=== PATIENT | male | born 1940 | race Caucasian/White ===

== ENCOUNTER 2018-12-08 09:22 | Inpatient (IN) ==
[2018-12-09] MEDS ORDERED: NON-FORMULARY MEDICATION 1 EACH EACH (Cefazolin Sodium In 0.9 % Nacl [Cefazolin 2 G/100 Ml IV SCH (17:30)
[2018-12-09] MEDS: Insulin LISPRO 300 UNITS/3 ML VIAL SQ SCH (23:10)
[2018-12-10] MEDS ORDERED: ceFAZolin 2,000 MG in 0.9 % Sodium Chloride 100 ML IVPB ONE
[2018-12-10 06:20] LABS: Basophils # 0.1 K/mcL (0.0-0.2); Basophils % 0.6 %; Eosinophils # 0.4 K/mcL (0.0-0.6); Eosinophils % 3.3 %; Hematocrit 34.9 % (37.5-50.1); Hemoglobin 11.2 g/dL (12.9-16.9); Immature Granulocytes % 1.2 % (0-4); Lymphocytes # 2.3 K/mcL (0.6-4.6); Lymphocytes % 20.7 %; Mean Corpuscular HGB Conc 32.1 g/dL (31.6-35.5); Mean Corpuscular Hemoglobin 27.8 pg (28.0-33.3); Mean Corpuscular Volume 86.6 fL (83.0-100.0); Mean Platelet Volume 10.8 fL (9.4-12.4); Monocytes # 1.1 K/mcL (0.0-1.3); Monocytes % 9.5 %; Neutrophils # 7.3 K/mcL (1.6-8.9); Platelet Count 486 K/mcL (140-400); Red Blood Count 4.03 M/mcL (4.19-5.50); Red Cell Distribution Width 13.8 % (11.5-14.5); Segmented Neutrophils % 64.7 %; White Blood Count 11.2 K/mcL (4.3-11.1)
[2018-12-10 06:38] LABS: BUN/Creatinine Ratio 23 (6-26); Blood Urea Nitrogen 20 mg/dL (8-23); Calcium 8.3 mg/dL (8.6-10.3); Carbon Dioxide 28 mEq/L (23-29); Chloride 103 mEq/L (98-107); Glucose 134 mg/dL (70-105); Osmolality,Calculated 289 (280-300); Potassium 3.5 mEq/L (3.5-5.1); Sodium 137 mEq/L (136-145); eGFR For African Americans > 60 (> 60); eGFR For Non-African Americans > 60 (> 60)
[2018-12-10] MEDS: Insulin LISPRO 300 UNITS/3 ML VIAL SQ SCH ×4 (07:23→21:00)
[2018-12-10] MEDS ORDERED: NON-FORMULARY MEDICATION 1 EACH EACH (Levofloxacin 750 Mg/150 Ml 750 MG) IVPB SCH (09:00)
[2018-12-10] MEDS: Aspirin Enteric Coated 81 MG Tablet PO SCH (09:23)
[2018-12-10] MEDS: Tiotropium 18 MCG inhalation IH SCH (10:06)
[2018-12-10] MEDS: LEVOFLOXACIN 750 MG/150 ML IVPB SCH (10:06)
--- NOTE | 2018-12-10 13:09 | Internal Med History&Physical ---
Date of Encounter: 12/10/18 Time of Encounter: 12:25 Assessment and Plan (1) MSSA bacteremia Current visit: No Status: Acute Continue IV Ancef through 12/26/2018. Lactobacillus will be added. (2) UTI (urinary tract infection) Current visit: No Status: Acute Continue IV Levaquin through 12/12/2018. Add lactobacillus. Qualifiers: Urinary tract infection type: site unspecified Hematuria presence: without hematuria Qualified Code(s): N39.0 - Urinary tract infection, site not specified (3) Diabetes Current visit: No Status: Chronic Check hemoglobin A1c in a.m. Accu-Cheks with SSI have been ordered. Qualifiers: Diabetes mellitus type: type 2 Diabetes mellitus senior care insulin use: without senior care use Diabetes mellitus complication status: with hyperglycemia Qualified Code(s): E11.65 - Type 2 diabetes mellitus with hyperglycemia (4) Essential hypertension Current visit: No Status: Chronic Not on antihypertensive medication at present time. Continue to monitor. (5) Dementia Current visit: No Status: Chronic Suspect SDAT with superimposed alcoholism Qualifiers: Dementia type: associated with alcoholism Dementia behavioral disturbance: with behavioral disturbance Qualified Code(s): F10.27 - Alcohol dependence with alcohol-induced persisting dementia (6) Blisters of multiple sites Current visit: No Status: Acute Continue antibiotics and dressings as ordered. Zinc level will be checked and multivitamin ordered. (7) Anemia Current visit: Yes Status: Acute Anemia testing will be done in a.m. Qualifiers: Anemia type: unspecified type Qualified Code(s): D64.9 - Anemia, unspecif ied (8) Hypophosphatemia Current visit: Yes Status: Acute Phosphorus level was 1.8 on 11/28/2018. Recheck in a.m. (9) Vitamin D deficiency Current visit: No Status: Acute Vitamin D level was low at 15 on 09/18/2016. Recheck in a.m. Internal Medicine - H&P: HPI Chief complaint: MSSA bacteremia, left second toe osteomyelitis Admitted From: Hospital to Hospital Transfer Plans for Post Hospital Care: Home History of present illness: Mr. Turner is a 77 year old male who was transferred to [facility] swing bed after a November 26 stay [address] [facility]. He presented to [facility] emergency room after being found on the floor at home for unknown period of time. He was found to have bacteremia with MSSA and Psychrobacter, UTI with MSSA and Serratia marcescens, and right second toe ulcer with MSSA and Serratia. 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 He had cellulitis of the right hand with gangrene of the right middle finger. He had numerous other skin ulcers. TTE showed no vegetations. He declined NIC. He was given IV antibiotics and discharged to [facility] swing bed to continue IV Levaquin through 12/12/2018 and IV Ancef through 12/26/2018. He has significant dementia and cannot provide little reliable information otherwise. Past Med Surg Social Fam HX - Past Medical History Medical history: arthritis, cancer, COPD, coronary artery disease, CVA, dementia, diabetes, GERD, hyperlipidemia, hypertension, osteoporosis, peripheral artery disease, other Psychiatric history: no psych history - Past Surgical History Surgical History: cancer surgery, cataract, other - Social History Smoking Status: Former smoker Smokeless Tobacco Status: No Alcohol use: none Drug use: none - Family History Mother Living Status: Internal Medicine - H&P: Meds Acetaminophen [Tylenol] 650 mg PO Q6HR PRN tablet 12/09/18 [Rx] Aspirin Enteric Coated [Aspirin EC] 81 mg PO DAILY tablet. 12/09/18 [Rx] Cefazolin Sodium in 0.9 % NaCl [Cefazolin 2 G/100 ml-0.9% NaCl] 2 gm IV Q8H 17 Days #51 plast..bag 12/09/18 [Rx] Insulin LISPRO [HumaLOG] 0 units SQ HS vial 12/09/18 [Rx] Insulin LISPRO [HumaLOG] 0 units SQ TIDAC vial 12/09/18 [Rx] Levofloxacin 750 MG/150 ML [Levaquin Premix 750mg/150 mL] 750 mg IVPB DAILY 3 Days #3 bag 12/09/18 [Rx] Miconazole 2% cream [Maricarmen Antifungal] 1 appl TP BID tube 12/09/18 [Rx] Mometasone Furoate [Asmanex Hfa] 2 puff IH BIDRESP puff 12/09/18 [Rx] Silvasorb 1 appl TP HS tube 12/09/18 [Rx] Tamsulosin [Flomax] 0.4 mg PO DAILY capsule 12/09/18 [Rx] Tiotropium [Spiriva] 18 mcg IH DAILYR inh 12/09/18 [Rx] risperiDONE [RisperDAL] 0.25 mg PO HS tablet 12/09/18 [Rx] Allergy/AdvReac Type Severity Reaction Status Date / Time tetanus and diphtheria AdvReac Hives Verified 06/22/15 22:32 toxoids [Tetanus&Diphtheria Toxoid] All Systems PM: A 10-system review of systems was performed and is negative for pertinent findings except as documented above in the HPI. Review of systems: Patient unable to give review of systems. Review of available records reveals the following: Gen.: His weight has been stable at approximately 80 kg since 2017. Cardiovascular: He has history of hypertension and a diagnosis of CAD not otherwise specified. He has PAD but no history of DVT or pulmonary embolus. Echocardiogram 11/28/2018 showed LVEF of 65%. There is no significant valvular abnormalities. Ventricular ventricular septum and posterior wall thickness measurements were 1.30 and 0.90 cm respectively. E/A ratio is 0.7. Respiratory: He states he started smoking as a teenager. The chart reports a diagnosis of COPD. GI: The chart shows GERD diagnosis. There is no disorders of liver gallbladder or exocrine pancreas documented : He had prostate CA with treatment history not documented. He has presumed BPH and is on Flomax. No other kidney bladder prostate disorders are documented. Neurologic: He has dementia. He states he drank alcohol heavily in younger year s. Chart reports a CVA history. Head CT did not show area of infarct. There was small vessel ischemic disease changes. Endocrine: He has diagnoses of DM 2 and hyperlipidemia. TSH was normal. His recent [facility] stay. Hematology/oncology: He has history of prostate CA as per above. No other malignancies are known. He developed anemia during his [facility] stay. Psychiatric: No anxiety depression or other mental health orders are documented [place] skeletal: He had right second toe amputation with osteomyelitis found on pathology. Cultures of the toe showed MSSA and Serratia. He has right hand cellulitis. He has multiple blisters on multiple sites including his right hand and bilateral feet. No history of gout or other bone joint or muscle disorders. - Constitutional Vitals: Temp Pulse Resp BP Pulse Ox 97.6 F 81 16 128/73 95 12/10/18 06:26 12/10/18 06:26 12/10/18 06:12/10/18 06:26 12/10/18 06:26 Exam: Gen.: He is a well-developed well-nourished male lying in bed who appears in no acute distress HEENT: Head is atraumatic and normocephalic. Eyes: EOMI. There is no scleral icterus. Mouth: Mucosa is moist. Neck: Supple and nontender. There is no thyromegaly or adenopathy noted. Heart: Regular without murmurs gallops or ectopics Lungs: No wheezes or crackles are heard. Abdomen: Soft and nontender. No masses or guarding are noted. Extremities: Both feet are wrapped in gauze. He has an orthopedic walking shoe on his right foot. His right hand is wrapped in gauze. There is significant gangrene of the lateral side of the right third finger. He is wearing Allevyn on the distal left forearm. Neurologic: Mental status: He is awake and alert but a poor historian. He does not know his location, recent hospitalization details, or age. Cranial nerves: Smile is symmetric. Forehead wrinkles bilaterally. Tongue protrudes midline. EOMI. Motor: There is no pronator drift. Cerebellar: Finger to nose is intact bilaterally. Skin: Warm and dry with ulcerative areas including gangrene as described above. Internal Med - H&P Results - Labs CBC & Chem 7: 12/10/18 05:00 12/10/18 05:00 Labs: Short CBC 12/10/18 Range/Units 05:00 WBC 11.2 H (4.3-11.1) K/mcL Hgb 11.2 L (12.9-16.9) g/dL Hct 34.9 L (37.5-50.1) % Plt Count 486 H (140-400) K/mcL Neutrophils # 7.3 (1.6-8.9) K/mcL BMP 12/10/18 05:00 Sodium 137 Potassium 3.5 Chloride 103 Carbon Dioxide 28 BUN 20 Creatinine 0.88 Glucose 134 H Calcium 8.3 L
[2018-12-10] MEDS: Lactobacillus 1 EACH CAP.SPRINK PO SCH (20:13)
[2018-12-10] MEDS: risperiDONE 0.25 MG TABLET PO SCH ×2 (20:13)
[2018-12-10] MEDS: Silvasorb 44.4 ML TUBE TP SCH ×2 (21:00)
[2018-12-11 06:24] LABS: Basophils # 0.1 K/mcL (0.0-0.2); Basophils % 0.5 %; Eosinophils # 0.4 K/mcL (0.0-0.6); Hematocrit 35.4 % (37.5-50.1); Hemoglobin 11.3 g/dL (12.9-16.9); Immature Granulocytes % 0.6 % (0-4); Lymphocytes # 2.1 K/mcL (0.6-4.6); Lymphocytes % 16.2 %; Mean Corpuscular HGB Conc 31.9 g/dL (31.6-35.5); Mean Corpuscular Volume 87.6 fL (83.0-100.0); Mean Platelet Volume 10.7 fL (9.4-12.4); Monocytes # 1.1 K/mcL (0.0-1.3); Monocytes % 8.6 %; Neutrophils # 9.4 K/mcL (1.6-8.9); Platelet Count 499 K/mcL (140-400); Red Blood Count 4.04 M/mcL (4.19-5.50); Segmented Neutrophils % 71.1 %; White Blood Count 13.2 K/mcL (4.3-11.1)
[2018-12-11 06:53] LABS: Alanine Aminotransferase 11 Units/L (7-52); Albumin 2.5 g/dL (3.5-5.7); Albumin/Globulin Ratio 0.6 (1.1-2.2); Alkaline Phosphatase 76 Units/L (34-104); Aspartate Amino Transferase 13 Units/L (13-39); BUN/Creatinine Ratio 21 (6-26); Bilirubin,Total 0.3 mg/dL (0.3-1.0); Blood Urea Nitrogen 18 mg/dL (8-23); Calcium 8.4 mg/dL (8.6-10.3); Carbon Dioxide 28 mEq/L (23-29); Chloride 103 mEq/L (98-107); Glucose 135 mg/dL (70-105); Osmolality,Calculated 288 (280-300); Phosphorous 3.1 mg/dL (2.7-4.5); Potassium 3.5 mEq/L (3.5-5.1); Sodium 137 mEq/L (136-145); Total Protein 6.5 g/dL (6.4-8.9); Uric Acid 4.4 mg/dL (2.3-7.6); eGFR For African Americans > 60 (> 60); eGFR For Non-African Americans > 60 (> 60)
[2018-12-11] MEDS: Insulin LISPRO 300 UNITS/3 ML VIAL SQ SCH ×4 (08:33→19:38)
[2018-12-11 09:04] LABS: % Iron Saturation 11 % (20-55); Iron 29 mcg/dL (65-175); Transferrin 193 mg/dL (203-362)
[2018-12-11 09:22] LABS: Ferritin 322 ng/mL (20-250)
[2018-12-11 09:28] LABS: Folate 7.2 ng/mL (3.0-16.0)
[2018-12-11] MEDS: Tiotropium 18 MCG inhalation IH SCH (09:39)
[2018-12-11] MEDS: Lactobacillus 1 EACH CAP.SPRINK PO SCH ×2 (09:53→19:38)
[2018-12-11] MEDS: Multivit/Ca/Min/Fe/FA 1 TAB TABLET PO SCH (09:53)
[2018-12-11] MEDS: LEVOFLOXACIN 750 MG/150 ML IVPB SCH (09:53)
[2018-12-11] MEDS: Aspirin Enteric Coated 81 MG Tablet PO SCH (09:53)
[2018-12-11 10:14] LABS: Estimated Average Glucose 166 mg/dl
--- NOTE | 2018-12-11 11:18 | Internal Med Progress Note ---
Date of Encounter: 12/11/18 Time of Encounter: 11:05 - Assessment and plan (1) MSSA bacteremia Current Visit: No Status: Acute Assessment and plan: December 11. Continue IV Ancef with lactobacillus through 12/26/2018. (2) UTI (urinary tract infection) Current Visit: No Status: Acute Assessment and plan: December 11. Continue IV Levaquin and lactobacillus through 12/12/2018. Qualifiers: Urinary tract infection type: site unspecified Hematuria presence: without hematuria Qualified Code(s): N39.0 - Urinary tract infection, site not specified (3) Diabetes Current Visit: No Status: Chronic Assessment and plan: December 11. Hemoglobin A1c slightly elevated at 7.4%. Continue Accu-Cheks with SSI. Qualifiers: Diabetes mellitus type: type 2 Diabetes mellitus repairer and checker insulin use: without [facility] use Diabetes mellitus complication status: with hyperglycemia Qualified Code(s): E11.65 - Type 2 diabetes mellitus with hyperglycemia (4) Essential hypertension Current Visit: No Status: Chronic Assessment and plan: December 11. Blood pressure remains well controlled off medications. (5) Dementia Current Visit: No Status: Chronic Assessment and plan: December 11. Suspect SDAT with superimposed alcoholism affect. B12 normal today at 326. Qualifiers: Dementia type: associated with alcoholism Dementia behavioral disturbance: with behavioral disturbance Qualified Code(s): F10.27 - Alcohol dependence with alcohol-induced persisting dementia (6) Blisters of multiple sites Current Visit: No Status: Acute Assessment and plan: December 11. Continue antibiotics, dressings, and multivitamin. Zinc level pending (7) Anemia Current Visit: Yes Status: Acute Assessment and plan: December 11. Anemia testing showed iron 29, transferrin saturation 11%, transferrin 193, ferritin 322, B12 326, and folate 7.2. Start ferrous sulfate with ascorbic acid in a.m. Qualifiers: Anemia type: unspecified type Qualified Code(s): D64.9 - Anemia, unspecifi ed (8) Hypophosphatemia Current Visit: Yes Status: Acute Assessment and plan: December 11. Phosphorus level normal at 3.1. (9) Vitamin D deficiency Current Visit: No Status: Acute Assessment and plan: December 11. Vitamin D level low at 10. Start supplemental vitamin D. - Subjective Interval history: December 11. He has no new complaints. He denies pain or dyspnea. - Constitutional Vitals: Temp Pulse Resp BP Pulse Ox 98.3 F 88 18 121/72 97 12/11/18 07:03 12/11/18 07:03 12/11/18 09:40 12/11/18 07:03 12/11/18 09:40 Exam: He is resting comfortably in bed and appears in no acute distress. His affect is flat. He nods his head but does not verbalize answers. Extremities show no pitting edema. I reviewed his medications and lab results. Internal Medicine: Result - Labs CBC & Chem 7: 12/11/18 04:40 12/11/18 04:40 Labs: Short CBC 12/11/18 Range/Units 04:40 WBC 13.2 H (4.3-11.1) K/mcL Hgb 11.3 L (12.9-16.9) g/dL Hct 35.4 L (37.5-50.1) % Plt Count 499 H (140-400) K/mcL Neutrophils # 9.4 H (1.6-8.9) K/mcL BMP 12/11/18 04:40 Sodium 137 Potassium 3.5 Chloride 103 Carbon Dioxide 28 BUN 18 Creatinine 0.86 Glucose 135 H Calcium 8.4 L Liver Function 12/11/18 Range/Units 04:40 Total Bilirubin 0.3 (0.3-1.0) mg/dL AST 13 (13-39) Units/L ALT 11 (7-52) Units/L Alkaline Phosphatase 76 (34-104) Units/L Albumin 2.5 L (3.5-5.7) g/dL Consult Discharge Plan - Plan Referrals: NONE,PCP [Primary Care Provider] - 1 week
[2018-12-11] MEDS: Cholecalciferol (D-3) 1,000 UNIT (25MCG) TABLET PO SCH (12:37)
[2018-12-11] MEDS: ceFAZolin 2,000 MG in Water for inj. (sterile) 20 ML IVPB SCH (19:30)
[2018-12-11] MEDS: risperiDONE 0.25 MG TABLET PO SCH (19:38)
[2018-12-11] MEDS: Acetaminophen 325 MG TABLET PO PRN (19:38)
[2018-12-11] MEDS: Silvasorb 44.4 ML TUBE TP SCH (21:00)
[2018-12-12] MEDS: ceFAZolin 2,000 MG in Water for inj. (sterile) 20 ML IVPB SCH ×3 (03:38→18:54)
[2018-12-12] MEDS: Ascorbic Acid 500 MG TABLET PO SCH (05:30)
[2018-12-12] MEDS: Aspirin Enteric Coated 81 MG Tablet PO SCH (08:57)
[2018-12-12] MEDS: Lactobacillus 1 EACH CAP.SPRINK PO SCH ×2 (08:58→21:30)
[2018-12-12] MEDS: Insulin LISPRO 300 UNITS/3 ML VIAL SQ SCH ×4 (08:58→21:30)
[2018-12-12] MEDS: Acetaminophen 325 MG TABLET PO PRN (08:58)
[2018-12-12] MEDS: Multivit/Ca/Min/Fe/FA 1 TAB TABLET PO SCH (08:58)
[2018-12-12] MEDS: Cholecalciferol (D-3) 1,000 UNIT (25MCG) TABLET PO SCH (08:58)
[2018-12-12] MEDS: LEVOFLOXACIN 750 MG/150 ML IVPB SCH (08:59)
[2018-12-12] MEDS: Tiotropium 18 MCG inhalation IH SCH (11:05)
[2018-12-12] MEDS: risperiDONE 0.25 MG TABLET PO SCH (21:30)
[2018-12-12] MEDS: Silvasorb 44.4 ML TUBE TP SCH (22:06)
[2018-12-13] MEDS: ceFAZolin 2,000 MG in Water for inj. (sterile) 20 ML IVPB SCH ×3 (02:48→18:28)
[2018-12-13] MEDS: Ascorbic Acid 500 MG TABLET PO SCH (06:27)
[2018-12-13] MEDS: Insulin LISPRO 300 UNITS/3 ML VIAL SQ SCH ×4 (08:28→20:22)
[2018-12-13] MEDS: LEVOFLOXACIN 750 MG/150 ML IVPB SCH (09:07)
[2018-12-13] MEDS: Lactobacillus 1 EACH CAP.SPRINK PO SCH ×2 (09:07→20:22)
[2018-12-13] MEDS: Aspirin Enteric Coated 81 MG Tablet PO SCH (09:07)
[2018-12-13] MEDS: Cholecalciferol (D-3) 1,000 UNIT (25MCG) TABLET PO SCH (09:07)
[2018-12-13] MEDS: Multivit/Ca/Min/Fe/FA 1 TAB TABLET PO SCH (09:07)
[2018-12-13] MEDS: Acetaminophen 325 MG TABLET PO PRN (09:08)
--- NOTE | 2018-12-13 10:44 | Internal Med Progress Note ---
Date of Encounter: 12/13/18 Time of Encounter: 10:25 - Assessment and plan (1) MSSA bacteremia Current Visit: No Status: Acute Assessment and plan: December 11. Continue IV Ancef with lactobacillus through 12/26/2018. (2) UTI (urinary tract infection) Current Visit: No Status: Acute Assessment and plan: December 11. Continue IV Levaquin and lactobacillus through 12/12/2018. Qualifiers: Urinary tract infection type: site unspecified Hematuria presence: without hematuria Qualified Code(s): N39.0 - Urinary tract infection, site not specified (3) Diabetes Current Visit: No Status: Chronic Assessment and plan: December 11. Hemoglobin A1c slightly elevated at 7.4%. Continue Accu-Cheks with SSI. December 13. Accu-Cheks satisfactory. Continue present Rx. Qualifiers: Diabetes mellitus type: type 2 Diabetes mellitus computer terminal operator insulin use: without care home use Diabetes mellitus complication status: with hyperglycemia Qualified Code(s): E11.65 - Type 2 diabetes mellitus with hyperglycemia (4) Essential hypertension Current Visit: No Status: Chronic Assessment and plan: December 11. Blood pressure remains well controlled off medications. (5) Dementia Current Visit: No Status: Chronic Assessment and plan: December 11. Suspect SDAT with superimposed alcoholism affect. B12 normal today at 326. Qualifiers: Dementia type: associated with alcoholism Dementia behavioral disturbance: with behavioral disturbance Qualified Code(s): F10.27 - Alcohol dependence with alcohol-induced persisting dementia (6) Blisters of multiple sites Current Visit: No Status: Acute Assessment and plan: December 11. Continue antibiotics, dressings, and multivitamin. Zinc level pending (7) Anemia Current Visit: Yes Status: Acute Assessment and plan: December 11. Anemia testing showed iron 29, transferrin saturation 11%, transferrin 193, ferritin 322, B12 326, and folate 7.2. Start ferrous sulfate with ascorbic acid in a.m. Qualifiers: Anemia type: unspecified type Qualified Code(s): D64.9 - Anemia, unspecified (8) Vitamin D deficiency Current Visit: No Status: Acute Assessment and plan: December 11. Vitamin D level low at 10. Start supplemental vitamin D. - Subjective Interval history: December 11. He has no new complaints. He denies pain or dyspnea. December 13. He has no new complaints. - Constitutional Vitals: Temp Pulse Resp BP Pulse Ox 97.8 F 74 20 171/83 94 12/13/18 07:13 12/13/18 07:13 12/13/18 07:13 12/13/18 07:13 12/13/18 07:13 Exam: He is resting comfortably in bed and appears in no acute distress. All dr essings were removed and wounds were examined. Chest area shows 2 shallow ulcerative areas approximate 3 cm maximum diameter with the left one showing a retained suture which will be removed. There are necrotic eschars at the base of the ulcers. There is no significant surrounding erythema indicating infection. His left lateral forearm has a ~2 cm erythematous area without open drainage. It is slightly tender to palpation. The left wrist shows a healed shallow ulcerative area. There are healing abrasions with mature eschars on his knees which are healing without evidence of infection. The right second toe amputation site shows no erythema or drainage. The left third fourth and fifth toes show some erythema without evidence of drainage. The right hand and wrist shows significant erythema with a few shallow ulcerative areas. There are areas of gangrene on the medial fifth finger, lateral fourth finger, and significant portion of the distal third finger. I reviewed his medications and lab results. Internal Medicine: Result - Labs CBC & Chem 7: 12/11/18 04:40 12/11/18 04:40 Consult Discharge Plan - Plan Referrals: NONE,PCP [Primary Care Provider] - 1 week
[2018-12-13] MEDS: Tiotropium 18 MCG inhalation IH SCH (11:06)
[2018-12-13] MEDS: risperiDONE 0.25 MG TABLET PO SCH (20:22)
[2018-12-13] MEDS: Silvasorb 44.4 ML TUBE TP SCH (20:24)
[2018-12-14] MEDS: ceFAZolin 2,000 MG in Water for inj. (sterile) 20 ML IVPB SCH ×3 (03:07→18:22)
[2018-12-14 05:44] LABS: Basophils # 0.1 K/mcL (0.0-0.2); Basophils % 0.7 %; Eosinophils # 0.4 K/mcL (0.0-0.6); Eosinophils % 4.5 %; Hematocrit 33.5 % (37.5-50.1); Immature Granulocytes % 0.6 % (0-4); Lymphocytes # 1.9 K/mcL (0.6-4.6); Lymphocytes % 21.7 %; Mean Corpuscular HGB Conc 32.8 g/dL (31.6-35.5); Mean Corpuscular Hemoglobin 28.1 pg (28.0-33.3); Mean Corpuscular Volume 85.5 fL (83.0-100.0); Mean Platelet Volume 10.5 fL (9.4-12.4); Monocytes # 0.8 K/mcL (0.0-1.3); Monocytes % 9.2 %; Neutrophils # 5.7 K/mcL (1.6-8.9); Platelet Count 483 K/mcL (140-400); Red Blood Count 3.92 M/mcL (4.19-5.50); Red Cell Distribution Width 13.7 % (11.5-14.5); Segmented Neutrophils % 63.3 %
[2018-12-14] MEDS: Ascorbic Acid 500 MG TABLET PO SCH (06:38)
[2018-12-14] MEDS: Insulin LISPRO 300 UNITS/3 ML VIAL SQ SCH ×4 (08:02→20:08)
[2018-12-14] MEDS: Lactobacillus 1 EACH CAP.SPRINK PO SCH ×2 (08:48→20:08)
[2018-12-14] MEDS: Multivit/Ca/Min/Fe/FA 1 TAB TABLET PO SCH (08:48)
[2018-12-14] MEDS: Aspirin Enteric Coated 81 MG Tablet PO SCH (08:48)
[2018-12-14] MEDS: Cholecalciferol (D-3) 1,000 UNIT (25MCG) TABLET PO SCH (08:48)
[2018-12-14] MEDS: Tiotropium 18 MCG inhalation IH SCH (09:20)
[2018-12-14] MEDS: Silvasorb 44.4 ML TUBE TP SCH (20:08)
[2018-12-14] MEDS: risperiDONE 0.25 MG TABLET PO SCH (20:08)
[2018-12-15] MEDS: ceFAZolin 2,000 MG in Water for inj. (sterile) 20 ML IVPB SCH ×3 (02:46→17:18)
[2018-12-15] MEDS: Ascorbic Acid 500 MG TABLET PO SCH (05:50)
[2018-12-15] MEDS: Insulin LISPRO 300 UNITS/3 ML VIAL SQ SCH ×4 (07:40→21:36)
[2018-12-15] MEDS: Aspirin Enteric Coated 81 MG Tablet PO SCH (08:54)
[2018-12-15] MEDS: Cholecalciferol (D-3) 1,000 UNIT (25MCG) TABLET PO SCH (08:54)
[2018-12-15] MEDS: Lactobacillus 1 EACH CAP.SPRINK PO SCH ×2 (08:54→21:36)
[2018-12-15] MEDS: Multivit/Ca/Min/Fe/FA 1 TAB TABLET PO SCH (08:55)
[2018-12-15] MEDS: Tiotropium 18 MCG inhalation IH SCH (09:12)
--- NOTE | 2018-12-15 15:25 | Internal Med Progress Note ---
Date of Encounter: 12/15/18 Time of Encounter: 15:18 - Assessment and plan (1) MSSA bacteremia Current Visit: No Status: Acute Assessment and plan: December 11. Continue IV Ancef with lactobacillus through 12/26/2018. (2) UTI (urinary tract infection) Current Visit: No Status: Acute Assessment and plan: December 11. Continue IV Levaquin and lactobacillus through 12/12/2018. December 13. Now off Levaquin. Continue to monitor. Qualifiers: Urinary tract infection type: site unspecified Hematuria presence: without hematuria Qualified Code(s): N39.0 - Urinary tract infection, site not specified (3) Diabetes Current Visit: No Status: Chronic Assessment and plan: December 11. Hemoglobin A1c slightly elevated at 7.4%. Continue Accu-Cheks with SSI. December 13. Accu-Cheks satisfactory. Continue present Rx. Qualifiers: Diabetes mellitus type: type 2 Diabetes mellitus custodial insulin use: without custodial use Diabetes mellitus complication status: with hyperglycemia Qualified Code(s): E11.65 - Type 2 diabetes mellitus with hyperglycemia (4) Essential hypertension Current Visit: No Status: Chronic Assessment and plan: December 11. Blood pressure remains well controlled off medications. (5) Dementia Current Visit: No Status: Chronic Assessment and plan: December 11. Suspect SDAT with superimposed alcoholism affect. B12 normal today at 326. Qualifiers: Dementia type: associated with alcoholism Dementia behavioral disturbance: with behavioral disturbance Qualified Code(s): F10.27 - Alcohol dependence with alcohol-induced persisting dementia (6) Blisters of multiple sites Current Visit: No Status: Acute Assessment and plan: December 11. Continue antibiotics, dressings, and multivitamin. Zinc level pending (7) Anemia Current Visit: Yes Status: Acute Assessment and plan: December 11. Anemia testing showed iron 29, transferrin saturation 11%, transferrin 193, ferritin 322, B12 326, and folate 7.2. Start ferrous sulfate with ascorbic acid in a.m. Qualifiers: Anemia type: unspecified type Qualified Code(s): D64.9 - Anemia, un specified (8) Vitamin D deficiency Current Visit: No Status: Acute Assessment and plan: December 11. Vitamin D level low at 10. Start supplemental vitamin D. - Subjective Interval history: December 11. He has no new complaints. He denies pain or dyspnea. December 13. He has no new complaints. December 15. He has no new complaints. He denies pain or dyspnea. - Constitutional Vitals: Temp Pulse Resp BP Pulse Ox 97.7 F 84 18 114/64 94 12/15/18 06:30 12/15/18 06:30 12/15/18 09:13 12/15/18 06:30 12/15/18 09:13 Exam: Is resting comfortably in bed and appears in no acute distress. Right foot shows forefoot bandaged and gauze without drainage on the dressing. Excoriations on his knees are healing well. Chest wounds are covered with bandages. His right hand is wrapped in gauze and I did not unwrap it. There is decreased edema in the right forearm. I reviewed his medications and lab results. Internal Medicine: Result - Labs CBC & Chem 7: 12/14/18 04:31 12/11/18 04:40 Consult Discharge Plan - Plan Referrals: NONE,PCP [Primary Care Provider] - 1 week
[2018-12-15] MEDS: risperiDONE 0.25 MG TABLET PO SCH (21:36)
[2018-12-15] MEDS: Silvasorb 44.4 ML TUBE TP SCH (21:37)
[2018-12-16] MEDS: ceFAZolin 2,000 MG in Water for inj. (sterile) 20 ML IVPB SCH ×3 (01:37→17:36)
[2018-12-16] MEDS: Ascorbic Acid 500 MG TABLET PO SCH (06:02)
[2018-12-16] MEDS: Insulin LISPRO 300 UNITS/3 ML VIAL SQ SCH ×4 (08:10→21:16)
[2018-12-16] MEDS: Lactobacillus 1 EACH CAP.SPRINK PO SCH ×2 (08:42→21:13)
[2018-12-16] MEDS: Aspirin Enteric Coated 81 MG Tablet PO SCH (08:42)
[2018-12-16] MEDS: Cholecalciferol (D-3) 1,000 UNIT (25MCG) TABLET PO SCH (08:42)
[2018-12-16] MEDS: Multivit/Ca/Min/Fe/FA 1 TAB TABLET PO SCH (08:42)
[2018-12-16] MEDS: Tiotropium 18 MCG inhalation IH SCH (09:06)
[2018-12-16] MEDS: risperiDONE 0.25 MG TABLET PO SCH (21:13)
[2018-12-16] MEDS: Silvasorb 44.4 ML TUBE TP SCH (21:14)
[2018-12-17] MEDS: ceFAZolin 2,000 MG in Water for inj. (sterile) 20 ML IVPB SCH ×3 (02:29→21:07)
[2018-12-17] MEDS: Ascorbic Acid 500 MG TABLET PO SCH (06:15)
[2018-12-17] MEDS: Aspirin Enteric Coated 81 MG Tablet PO SCH (09:57)
[2018-12-17] MEDS: Cholecalciferol (D-3) 1,000 UNIT (25MCG) TABLET PO SCH (09:57)
[2018-12-17] MEDS: Lactobacillus 1 EACH CAP.SPRINK PO SCH ×2 (09:57→21:07)
[2018-12-17] MEDS: Multivit/Ca/Min/Fe/FA 1 TAB TABLET PO SCH (09:57)
[2018-12-17] MEDS: Tiotropium 18 MCG inhalation IH SCH (10:28)
[2018-12-17] MEDS: Insulin LISPRO 300 UNITS/3 ML VIAL SQ SCH ×4 (11:54→21:05)
[2018-12-17] MEDS: risperiDONE 0.25 MG TABLET PO SCH (21:07)
[2018-12-18] MEDS: Silvasorb 44.4 ML TUBE TP SCH ×2 (04:53→20:00)
[2018-12-18] MEDS: ceFAZolin 2,000 MG in Water for inj. (sterile) 20 ML IVPB SCH ×3 (05:17→19:52)
[2018-12-18] MEDS: Ascorbic Acid 500 MG TABLET PO SCH (05:18)
[2018-12-18] MEDS: Insulin LISPRO 300 UNITS/3 ML VIAL SQ SCH ×4 (07:23→19:53)
[2018-12-18] MEDS: Lactobacillus 1 EACH CAP.SPRINK PO SCH ×2 (08:52→19:53)
[2018-12-18] MEDS: Multivit/Ca/Min/Fe/FA 1 TAB TABLET PO SCH (08:53)
[2018-12-18] MEDS: Cholecalciferol (D-3) 1,000 UNIT (25MCG) TABLET PO SCH (08:53)
[2018-12-18] MEDS: Aspirin Enteric Coated 81 MG Tablet PO SCH (08:53)
[2018-12-18] MEDS: Tiotropium 18 MCG inhalation IH SCH (09:56)
--- NOTE | 2018-12-18 15:28 | Internal Med Progress Note ---
Date of Encounter: 12/18/18 Time of Encounter: 15:20 - Assessment and plan (1) MSSA bacteremia Current Visit: No Status: Acute Assessment and plan: December 11. Continue IV Ancef with lactobacillus through 12/26/2018. (2) UTI (urinary tract infection) Current Visit: No Status: Acute Assessment and plan: December 11. Continue IV Levaquin and lactobacillus through 12/12/2018. December 13. Now off Levaquin. Continue to monitor. Qualifiers: Urinary tract infection type: site unspecified Hematuria presence: without hematuria Qualified Code(s): N39.0 - Urinary tract infection, site not specified (3) Diabetes Current Visit: No Status: Chronic Assessment and plan: December 11. Hemoglobin A1c slightly elevated at 7.4%. Continue Accu-Cheks with SSI. December 13. Accu-Cheks satisfactory. Continue present Rx. Qualifiers: Diabetes mellitus type: type 2 Diabetes mellitus shelter insulin use: without shelter use Diabetes mellitus complication status: with hyperglycemia Qualified Code(s): E11.65 - Type 2 diabetes mellitus with hyperglycemia (4) Essential hypertension Current Visit: No Status: Chronic Assessment and plan: December 11. Blood pressure remains well controlled off medications. (5) Dementia Current Visit: No Status: Chronic Assessment and plan: December 11. Suspect SDAT with superimposed alcoholism affect. B12 normal today at 326. Qualifiers: Dementia type: associated with alcoholism Dementia behavioral disturbance: with behavioral disturbance Qualified Code(s): F10.27 - Alcohol dependence with alcohol-induced persisting dementia (6) Blisters of multiple sites Current Visit: No Status: Acute Assessment and plan: December 11. Continue antibiotics, dressings, and multivitamin. Zinc level pending December 18. Zinc level normal at 72.4. Continue antibiotics, dressings, and multivitamins (7) Anemia Current Visit: Yes Status: Acute Assessment and plan: December 11. Anemia testing showed iron 29, transferrin saturation 11%, transferrin 193, ferritin 322, B12 326, and folate 7.2. Start ferrous sulfate with ascorbic acid in a.m. Qualifiers: Anemia type: unspecified type Qualified Code(s): D64.9 - Anemia, unspecified (8) Vitamin D deficiency Current Visit: No Status: Acute Assessment and plan: December 11. Vitamin D level low at 10. Start supplemental vitamin D. - Subjective Interval history: December 11. He has no new complaints. He denies pain or dyspnea. December 13. He has no new complaints. December 15. He has no new complaints. He denies pain or dyspnea. December 18. He has no new complaints. - Constitutional Vitals: Temp Pulse Resp BP Pulse Ox 97.6 F 71 12 140/71 90 12/18/18 07:09 12/18/18 07:09 12/18/18 09:56 12/18/18 07:09 12/18/18 09:56 Exam: He is resting comfortably in bed and appears in no acute distress. He is minimally conversive but answers questions properly. Right arm edema has lessened. Shallow eschars on his knee showed no evidence of infection. Right second toe amputation site is clean and dry. I reviewed his medications and lab results. Internal Medicine: Result - Labs CBC & Chem 7: 12/14/18 04:31 12/11/18 04:40 Consult Discharge Plan - Plan Referrals: NONE,PCP [Primary Care Provider] - 1 week
[2018-12-18] MEDS: risperiDONE 0.25 MG TABLET PO SCH (19:53)
[2018-12-19] MEDS: ceFAZolin 2,000 MG in Water for inj. (sterile) 20 ML IVPB SCH ×3 (05:19→21:18)
[2018-12-19] MEDS: Ascorbic Acid 500 MG TABLET PO SCH (05:20)
[2018-12-19] MEDS: Insulin LISPRO 300 UNITS/3 ML VIAL SQ SCH ×4 (07:09→21:18)
[2018-12-19] MEDS: Tiotropium 18 MCG inhalation IH SCH (09:28)
[2018-12-19] MEDS: Cholecalciferol (D-3) 1,000 UNIT (25MCG) TABLET PO SCH (10:03)
[2018-12-19] MEDS: Multivit/Ca/Min/Fe/FA 1 TAB TABLET PO SCH (10:03)
[2018-12-19] MEDS: Aspirin Enteric Coated 81 MG Tablet PO SCH (10:03)
[2018-12-19] MEDS: Lactobacillus 1 EACH CAP.SPRINK PO SCH ×2 (10:03→21:18)
[2018-12-19] MEDS: Silvasorb 44.4 ML TUBE TP SCH (21:00)
[2018-12-19] MEDS: risperiDONE 0.25 MG TABLET PO SCH (21:18)
[2018-12-20] MEDS: ceFAZolin 2,000 MG in Water for inj. (sterile) 20 ML IVPB SCH ×3 (05:30→20:06)
[2018-12-20] MEDS: Ascorbic Acid 500 MG TABLET PO SCH (05:48)
[2018-12-20] MEDS: Insulin LISPRO 300 UNITS/3 ML VIAL SQ SCH ×4 (07:27→20:20)
[2018-12-20] MEDS: Multivit/Ca/Min/Fe/FA 1 TAB TABLET PO SCH (09:20)
[2018-12-20] MEDS: Cholecalciferol (D-3) 1,000 UNIT (25MCG) TABLET PO SCH (09:20)
[2018-12-20] MEDS: Lactobacillus 1 EACH CAP.SPRINK PO SCH ×2 (09:20→20:05)
[2018-12-20] MEDS: Aspirin Enteric Coated 81 MG Tablet PO SCH (09:20)
[2018-12-20] MEDS: Tiotropium 18 MCG inhalation IH SCH (10:01)
[2018-12-20] MEDS: ALPRAZolam 0.5 MG TABLET PO PRN ×2 (20:04→23:49)
[2018-12-20] MEDS: risperiDONE 0.25 MG TABLET PO SCH (20:05)
[2018-12-21] MEDS: ceFAZolin 2,000 MG in Water for inj. (sterile) 20 ML IVPB SCH ×3 (04:54→20:18)
[2018-12-21] MEDS: Silvasorb 44.4 ML TUBE TP SCH ×2 (04:56→20:21)
[2018-12-21] MEDS: Ascorbic Acid 500 MG TABLET PO SCH (04:56)
[2018-12-21] MEDS: Aspirin Enteric Coated 81 MG Tablet PO SCH ×2 (09:29→11:10)
[2018-12-21] MEDS: Cholecalciferol (D-3) 1,000 UNIT (25MCG) TABLET PO SCH ×2 (09:29→11:10)
[2018-12-21] MEDS: Lactobacillus 1 EACH CAP.SPRINK PO SCH ×3 (09:29→20:18)
[2018-12-21] MEDS: Multivit/Ca/Min/Fe/FA 1 TAB TABLET PO SCH ×2 (09:29→11:10)
[2018-12-21] MEDS: Insulin LISPRO 300 UNITS/3 ML VIAL SQ SCH ×4 (09:30→20:18)
[2018-12-21] MEDS: Tiotropium 18 MCG inhalation IH SCH (10:20)
--- NOTE | 2018-12-21 15:23 | Internal Med Progress Note ---
Date of Encounter: 12/21/18 Time of Encounter: 15:15 - Assessment and plan (1) MSSA bacteremia Current Visit: No Status: Acute Assessment and plan: December 11. Continue IV Ancef with lactobacillus through 12/26/2018. (2) UTI (urinary tract infection) Current Visit: No Status: Acute Assessment and plan: December 11. Continue IV Levaquin and lactobacillus through 12/12/2018. December 13. Now off Levaquin. Continue to monitor. Qualifiers: Urinary tract infection type: site unspecified Hematuria presence: without hematuria Qualified Code(s): N39.0 - Urinary tract infection, site not specified (3) Diabetes Current Visit: No Status: Chronic Assessment and plan: December 11. Hemoglobin A1c slightly elevated at 7.4%. Continue Accu-Cheks with SSI. December 13. Accu-Cheks satisfactory. Continue present Rx. Qualifiers: Diabetes mellitus type: type 2 Diabetes mellitus mcfp insulin use: without mcfp use Diabetes mellitus complication status: with hyperglycemia Qualified Code(s): E11.65 - Type 2 diabetes mellitus with hyperglycemia (4) Essential hypertension Current Visit: No Status: Chronic Assessment and plan: December 11. Blood pressure remains well controlled off medications. (5) Dementia Current Visit: No Status: Chronic Assessment and plan: December 11. Suspect SDAT with superimposed alcoholism affect. B12 normal today at 326. Qualifiers: Dementia type: associated with alcoholism Dementia behavioral disturbance: with behavioral disturbance Qualified Code(s): F10.27 - Alcohol dependence with alcohol-induced persisting dementia (6) Blisters of multiple sites Current Visit: No Status: Acute Assessment and plan: December 11. Continue antibiotics, dressings, and multivitamin. Zinc level pending December 18. Zinc level normal at 72.4. Continue antibiotics, dressings, and multivitamins (7) Anemia Current Visit: Yes Status: Acute Assessment and plan: December 11. Anemia testing showed iron 29, transferrin saturation 11%, transferrin 193, ferritin 322, B12 326, and folate 7.2. Start ferrous sulfate with ascorbic acid in a.m. December 21. Recheck labs in a.m. Qualifiers: Anemia type: unspecified type Qualified Code(s): D64.9 - Anemia, unspecified (8) Vitamin D deficiency Current Visit: No Status: Acute Assessment and plan: December 11. Vitamin D level low at 10. Start supplemental vitamin D. - Subjective Interval history: December 11. He has no new complaints. He denies pain or dyspnea. December 13. He has no new complaints. December 15. He has no new complaints. He denies pain or dyspnea. December 18. He has no new complaints. December 21. No new problems have arisen. - Constitutional Vitals: Temp Pulse Resp BP Pulse Ox 98.1 F 61 12 132/65 95 12/21/18 06:48 12/21/18 06:48 12/21/18 10:17 12/21/18 06:48 12/21/18 10:17 Exam: He is lying in bed with the covers up to his neck. He opens his eyes minimally to voice and light touch but does not answer. Ulcerative lesions on his knees continue to show evolutionary healing. There is no pitting edema of his lower legs. I reviewed his medications and lab results. Internal Medicine: Result - Labs CBC & Chem 7: 12/14/18 04:31 12/11/18 04:40 Consult Discharge Plan - Plan Referrals: NONE,PCP [Primary Care Provider] - 1 week
[2018-12-21] MEDS: risperiDONE 0.25 MG TABLET PO SCH (20:18)
[2018-12-22] MEDS: ceFAZolin 2,000 MG in Water for inj. (sterile) 20 ML IVPB SCH ×2 (04:52→15:49)
[2018-12-22 05:34] LABS: Basophils % 0.4 %; Eosinophils # 0.9 K/mcL (0.0-0.6); Eosinophils % 9.8 %; Hematocrit 34.9 % (37.5-50.1); Hemoglobin 11.2 g/dL (12.9-16.9); Immature Granulocytes % 0.3 % (0-4); Lymphocytes # 1.9 K/mcL (0.6-4.6); Lymphocytes % 20.6 %; Mean Corpuscular HGB Conc 32.1 g/dL (31.6-35.5); Mean Corpuscular Hemoglobin 27.6 pg (28.0-33.3); Monocytes # 0.8 K/mcL (0.0-1.3); Monocytes % 8.7 %; Neutrophils # 5.5 K/mcL (1.6-8.9); Platelet Count 363 K/mcL (140-400); Red Blood Count 4.06 M/mcL (4.19-5.50); Segmented Neutrophils % 60.2 %; White Blood Count 9.1 K/mcL (4.3-11.1)
[2018-12-22] MEDS: Ascorbic Acid 500 MG TABLET PO SCH (06:11)
[2018-12-22] MEDS: Insulin LISPRO 300 UNITS/3 ML VIAL SQ SCH ×4 (08:17→20:06)
[2018-12-22] MEDS: Cholecalciferol (D-3) 1,000 UNIT (25MCG) TABLET PO SCH (08:46)
[2018-12-22] MEDS: Lactobacillus 1 EACH CAP.SPRINK PO SCH ×2 (08:46→20:05)
[2018-12-22] MEDS: Aspirin Enteric Coated 81 MG Tablet PO SCH (08:46)
[2018-12-22] MEDS: Multivit/Ca/Min/Fe/FA 1 TAB TABLET PO SCH (08:46)
[2018-12-22] MEDS: Tiotropium 18 MCG inhalation IH SCH (10:00)
[2018-12-22] MEDS: risperiDONE 0.25 MG TABLET PO SCH (20:05)
[2018-12-22] MEDS: Silvasorb 44.4 ML TUBE TP SCH (20:06)
[2018-12-23] MEDS: ceFAZolin 2,000 MG in Water for inj. (sterile) 20 ML IVPB SCH ×4 (00:07→18:01)
[2018-12-23] MEDS: Ascorbic Acid 500 MG TABLET PO SCH (05:39)
[2018-12-23] MEDS: Insulin LISPRO 300 UNITS/3 ML VIAL SQ SCH ×4 (07:31→21:05)
[2018-12-23] MEDS: Lactobacillus 1 EACH CAP.SPRINK PO SCH ×2 (07:32→21:05)
[2018-12-23] MEDS: Aspirin Enteric Coated 81 MG Tablet PO SCH (07:32)
[2018-12-23] MEDS: Multivit/Ca/Min/Fe/FA 1 TAB TABLET PO SCH (07:33)
[2018-12-23] MEDS: Cholecalciferol (D-3) 1,000 UNIT (25MCG) TABLET PO SCH (07:33)
[2018-12-23] MEDS: Tiotropium 18 MCG inhalation IH SCH (11:21)
[2018-12-23] MEDS: risperiDONE 0.25 MG TABLET PO SCH (21:05)
[2018-12-23] MEDS: Silvasorb 44.4 ML TUBE TP SCH (21:08)
[2018-12-24] MEDS: ceFAZolin 2,000 MG in Water for inj. (sterile) 20 ML IVPB SCH ×3 (01:10→17:08)
[2018-12-24] MEDS: Ascorbic Acid 500 MG TABLET PO SCH (05:14)
[2018-12-24] MEDS: Insulin LISPRO 300 UNITS/3 ML VIAL SQ SCH ×4 (08:38→20:57)
[2018-12-24] MEDS: Lactobacillus 1 EACH CAP.SPRINK PO SCH ×2 (08:51→21:44)
[2018-12-24] MEDS: Cholecalciferol (D-3) 1,000 UNIT (25MCG) TABLET PO SCH (08:51)
[2018-12-24] MEDS: Multivit/Ca/Min/Fe/FA 1 TAB TABLET PO SCH (08:51)
[2018-12-24] MEDS: Aspirin Enteric Coated 81 MG Tablet PO SCH (08:51)
[2018-12-24] MEDS: Tiotropium 18 MCG inhalation IH SCH (09:39)
--- NOTE | 2018-12-24 15:30 | Internal Med Progress Note ---
Date of Encounter: 12/24/18 Time of Encounter: 15:23 - Assessment and plan (1) MSSA bacteremia Current Visit: No Status: Acute Assessment and plan: December 11. Continue IV Ancef with lactobacillus through 12/26/2018. (2) UTI (urinary tract infection) Current Visit: No Status: Acute Assessment and plan: December 11. Continue IV Levaquin and lactobacillus through 12/12/2018. December 13. Now off Levaquin. Continue to monitor. Qualifiers: Urinary tract infection type: site unspecified Hematuria presence: without hematuria Qualified Code(s): N39.0 - Urinary tract infection, site not specified (3) Diabetes Current Visit: No Status: Chronic Assessment and plan: December 11. Hemoglobin A1c slightly elevated at 7.4%. Continue Accu-Cheks with SSI. December 13. Accu-Cheks satisfactory. Continue present Rx. Qualifiers: Diabetes mellitus type: type 2 Diabetes mellitus group home insulin use: without group home use Diabetes mellitus complication status: with hyperglycemia Qualified Code(s): E11.65 - Type 2 diabetes mellitus with hyperglycemia (4) Essential hypertension Current Visit: No Status: Chronic Assessment and plan: December 11. Blood pressure remains well controlled off medications. (5) Dementia Current Visit: No Status: Chronic Assessment and plan: December 11. Suspect SDAT with superimposed alcoholism affect. B12 normal today at 326. December 24. He can answer questions and converse appropriately. Continue to monitor. Qualifiers: Dementia type: associated with alcoholism Dementia behavioral disturbance: with behavioral disturbance Qualified Code(s): F10.27 - Alcohol dependence with alcohol-induced persisting dementia (6) Blisters of multiple sites Current Visit: No Status: Acute Assessment and plan: December 11. Continue antibiotics, dressings, and multivitamin. Zinc level pending December 18. Zinc level normal at 72.4. Continue antibiotics, dressings, and multivitamins December 24. As per orthopedist in wound clinic. (7) Anemia Current Visit: Yes Status: Acute Assessment and plan: December 11. Anemia testing showed iron 29, transferrin saturation 11%, transferrin 193, ferritin 322, B12 326, and folate 7.2. Start ferrous sulfate with ascorbic acid in a.m. December 21. Recheck labs in a.m. December 24. Hemoglobin stable at 11.2. Qualifiers: Anemia type: unspecified type Qualified Code(s): D64.9 - Anemia, unspecified (8) Vitamin D deficiency Current Visit: No Status: Acute Assessment and plan: December 11. Vitamin D level low at 10. Start supplemental vitamin D. - Subjective Interval history: December 11. He has no new complaints. He denies pain or dyspnea. December 13. He has no new complaints. December 15. He has no new complaints. He denies pain or dyspnea. December 18. He has no new complaints. December 21. No new problems have arisen. December 24. He has no new complaints. - Constitutional Vitals: Temp Pulse Resp BP Pulse Ox 99.0 F 76 16 151/66 94 12/24/18 06:46 12/24/18 06:46 12/24/18 09:40 12/24/18 06:46 12/24/18 09:40 Exam: December 24. He is resting comfortably in bed and appears in no acute distress. His affect is bright and cheerful. Knee abrasions are healing without evidence of infection. There is a gauze dressing on his right foot and right hand which I did not unwrap. I visualized the toes/distal foot through the opening in the dressing and did not see any significant erythema or drainage. (He was seen by wound care personnel yesterday) I reviewed his medications and lab results. Internal Medicine: Result - Labs CBC & Chem 7: 12/22/18 05:20 12/11/18 04:40 Consult Discharge Plan - Plan Referrals: NONE,PCP [Primary Care Provider] - 1 week
[2018-12-24] MEDS: risperiDONE 0.25 MG TABLET PO SCH (21:44)
[2018-12-24] MEDS: Silvasorb 44.4 ML TUBE TP SCH (21:45)
[2018-12-25] MEDS: ceFAZolin 2,000 MG in Water for inj. (sterile) 20 ML IVPB SCH ×3 (01:16→17:38)
[2018-12-25] MEDS: Ascorbic Acid 500 MG TABLET PO SCH (05:54)
[2018-12-25] MEDS: Lactobacillus 1 EACH CAP.SPRINK PO SCH ×2 (08:41→21:49)
[2018-12-25] MEDS: Cholecalciferol (D-3) 1,000 UNIT (25MCG) TABLET PO SCH (08:41)
[2018-12-25] MEDS: Aspirin Enteric Coated 81 MG Tablet PO SCH (08:41)
[2018-12-25] MEDS: Insulin LISPRO 300 UNITS/3 ML VIAL SQ SCH ×4 (08:44→21:49)
[2018-12-25] MEDS: Multivit/Ca/Min/Fe/FA 1 TAB TABLET PO SCH (10:43)
[2018-12-25] MEDS: Tiotropium 18 MCG inhalation IH SCH (11:00)
--- NOTE | 2018-12-25 14:03 | Internal Med Progress Note ---
Date of Encounter: 12/25/18 Time of Encounter: 13:50 - Assessment and plan (1) MSSA bacteremia Current Visit: No Status: Acute Assessment and plan: December 11. Continue IV Ancef with lactobacillus through 12/26/2018. (2) UTI (urinary tract infection) Current Visit: No Status: Acute Assessment and plan: December 11. Continue IV Levaquin and lactobacillus through 12/12/2018. December 13. Now off Levaquin. Continue to monitor. Qualifiers: Urinary tract infection type: site unspecified Hematuria presence: without hematuria Qualified Code(s): N39.0 - Urinary tract infection, site not specified (3) Diabetes Current Visit: No Status: Chronic Assessment and plan: December 11. Hemoglobin A1c slightly elevated at 7.4%. Continue Accu-Cheks with SSI. December 13. Accu-Cheks satisfactory. Continue present Rx. Qualifiers: Diabetes mellitus type: type 2 Diabetes mellitus prison insulin use: without prison use Diabetes mellitus complication status: with hyperglycemia Qualified Code(s): E11.65 - Type 2 diabetes mellitus with hyperglycemia (4) Essential hypertension Current Visit: No Status: Chronic Assessment and plan: December 11. Blood pressure remains well controlled off medications. (5) Dementia Current Visit: No Status: Chronic Assessment and plan: December 11. Suspect SDAT with superimposed alcoholism affect. B12 normal today at 326. December 24. He can answer questions and converse appropriately. Continue to monitor. Qualifiers: Dementia type: associated with alcoholism Dementia behavioral disturbance: with behavioral disturbance Qualified Code(s): F10.27 - Alcohol dependence with alcohol-induced persisting dementia (6) Blisters of multiple sites Current Visit: No Status: Acute Assessment and plan: December 11. Continue antibiotics, dressings, and multivitamin. Zinc level pending December 18. Zinc level normal at 72.4. Continue antibiotics, dressings, and multivitamins December 24. As per orthopedist in wound clinic. December 25. Blisters have drained. 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 Anticipate hand surgery 01/01/2019. (7) Anemia Current Visit: Yes Status: Acute Assessment and plan: December 11. Anemia testing showed iron 29, transferrin saturation 11%, transferrin 193, ferritin 322, B12 326, and folate 7.2. Start ferrous sulfate with ascorbic acid in a.m. December 21. Recheck labs in a.m. December 24. Hemoglobin stable at 11.2. Qualifiers: Anemia type: unspecified type Qualified Code(s): D64.9 - Anemia, unspecified (8) Vitamin D deficiency Current Visit: No Status: Acute Assessment and plan: December 11. Vitamin D level low at 10. Start supplemental vitamin D. - Subjective Interval history: December 11. He has no new complaints. He denies pain or dyspnea. December 13. He has no new complaints. December 15. He has no new complaints. He denies pain or dyspnea. December 18. He has no new complaints. December 21. No new problems have arisen. December 24. He has no new complaints. December 25. He has no new complaints. - Constitutional Vitals: Temp Pulse Resp BP Pulse Ox 98.5 F 74 18 143/81 93 12/25/18 07:13 12/25/18 07:13 12/25/18 11:00 12/25/18 07:13 12/25/18 11:00 Exam: He is resting comfortably in bed. His affect is overall cheerful. Wounds/surgical sites on his chest, right arm, and right foot were examined. Right foot wound has essentially healed. 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 Chest wounds and right hand wound appear to show slight improvement. Internal Medicine: Result - Labs CBC & Chem 7: 12/22/18 05:20 12/11/18 04:40 Consult Discharge Plan - Plan Referrals: NONE,PCP [Primary Care Provider] - 1 week
[2018-12-25] MEDS: Acetaminophen 325 MG TABLET PO PRN (21:48)
[2018-12-25] MEDS: risperiDONE 0.25 MG TABLET PO SCH (21:49)
[2018-12-25] MEDS: ALPRAZolam 0.5 MG TABLET PO PRN (21:49)
[2018-12-25] MEDS: Silvasorb 44.4 ML TUBE TP SCH (21:49)
[2018-12-26] MEDS: ceFAZolin 2,000 MG in Water for inj. (sterile) 20 ML IVPB SCH ×3 (01:02→17:02)
[2018-12-26] MEDS: Ascorbic Acid 500 MG TABLET PO SCH (06:16)
[2018-12-26] MEDS: Insulin LISPRO 300 UNITS/3 ML VIAL SQ SCH ×4 (10:29→21:20)
[2018-12-26] MEDS: Tiotropium 18 MCG inhalation IH SCH (11:09)
[2018-12-26] MEDS: Multivit/Ca/Min/Fe/FA 1 TAB TABLET PO SCH (15:01)
[2018-12-26] MEDS: Aspirin Enteric Coated 81 MG Tablet PO SCH (15:01)
[2018-12-26] MEDS: Cholecalciferol (D-3) 1,000 UNIT (25MCG) TABLET PO SCH (15:01)
[2018-12-26] MEDS: Lactobacillus 1 EACH CAP.SPRINK PO SCH ×2 (15:03→21:18)
[2018-12-26] MEDS: risperiDONE 0.25 MG TABLET PO SCH (21:18)
[2018-12-26] MEDS: Silvasorb 44.4 ML TUBE TP SCH (21:20)
[2018-12-27] MEDS: ceFAZolin 2,000 MG in Water for inj. (sterile) 20 ML IVPB SCH ×3 (02:59→18:56)
[2018-12-27] MEDS: Ascorbic Acid 500 MG TABLET PO SCH (06:04)
[2018-12-27] MEDS: Tiotropium 18 MCG inhalation IH SCH (10:47)
[2018-12-27] MEDS: Insulin LISPRO 300 UNITS/3 ML VIAL SQ SCH ×4 (13:59→21:41)
[2018-12-27] MEDS: Lactobacillus 1 EACH CAP.SPRINK PO SCH (14:01)
[2018-12-27] MEDS: Aspirin Enteric Coated 81 MG Tablet PO SCH (14:02)
[2018-12-27] MEDS: Multivit/Ca/Min/Fe/FA 1 TAB TABLET PO SCH (14:02)
[2018-12-27] MEDS: Cholecalciferol (D-3) 1,000 UNIT (25MCG) TABLET PO SCH (14:02)
[2018-12-27] MEDS: risperiDONE 0.25 MG TABLET PO SCH (21:38)
[2018-12-27] MEDS: Silvasorb 44.4 ML TUBE TP SCH (21:39)
[2018-12-28] MEDS: Ascorbic Acid 500 MG TABLET PO SCH (06:00)
[2018-12-28] MEDS: Insulin LISPRO 300 UNITS/3 ML VIAL SQ SCH ×4 (09:15→20:31)
[2018-12-28] MEDS: Tiotropium 18 MCG inhalation IH SCH (10:51)
--- NOTE | 2018-12-28 10:52 | Internal Med Progress Note ---
Date of Encounter: 12/28/18 Time of Encounter: 10:45 - Assessment and plan (1) MSSA bacteremia Current Visit: No Status: Acute Assessment and plan: December 11. Continue IV Ancef with lactobacillus through 12/26/2018. December 28. He has completed the course of IV Ancef. (2) UTI (urinary tract infection) Current Visit: No Status: Acute Assessment and plan: December 11. Continue IV Levaquin and lactobacillus through 12/12/2018. December 13. Now off Levaquin. Continue to monitor. Qualifiers: Urinary tract infection type: site unspecified Hematuria presence: without hematuria Qualified Code(s): N39.0 - Urinary tract infection, site not specified (3) Diabetes Current Visit: No Status: Chronic Assessment and plan: December 11. Hemoglobin A1c slightly elevated at 7.4%. Continue Accu-Cheks with SSI. December 13. Accu-Cheks satisfactory. Continue present Rx. Qualifiers: Diabetes mellitus type: type 2 Diabetes mellitus manager intermediate insulin use: without manager intermediate use Diabetes mellitus complication status: with hyperglycemia Qualified Code(s): E11.65 - Type 2 diabetes mellitus with hyperglycemia (4) Essential hypertension Current Visit: No Status: Chronic Assessment and plan: December 11. Blood pressure remains well controlled off medications. (5) Dementia Current Visit: No Status: Chronic Assessment and plan: December 11. Suspect SDAT with superimposed alcoholism affect. B12 normal today at 326. December 24. He can answer questions and converse appropriately. Continue to monitor. Qualifiers: Dementia type: associated with alcoholism Dementia behavioral disturbance: with behavioral disturbance Qualified Code(s): F10.27 - Alcohol dependence with alcohol-induced persisting dementia (6) Blisters of multiple sites Current Visit: No Status: Acute Assessment and plan: December 11. Continue antibiotics, dressings, and multivitamin. Zinc level pending December 18. Zinc level normal at 72.4. Continue antibiotics, dressings, and multivitamins December 24. As per orthopedist in wound clinic. December 25. Blisters have drained. 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 Anticipate hand surgery 01/01/2019. December 28. Antibiotics have been completed. He is at increased risk of infections due to the presence of multiple eschars and general debilitation. I recommend he remain in swing bed until transfer to [facility] for anticipated surgery 01/01/2019 since home environment is less hygienic and present needed level of wound observation/care unavailable. (7) Anemia Current Visit: Yes Status: Acute Assessment and plan: December 11. Anemia testing showed iron 29, transferrin saturation 11%, transferrin 193, ferritin 322, B12 326, and folate 7.2. Start ferrous sulfate with ascorbic acid in a.m. December 21. Recheck labs in a.m. December 24. Hemoglobin stable at 11.2. Qualifiers: Anemia type: unspecified type Qualified Code(s): D64.9 - Anemia, u nspecified (8) Vitamin D deficiency Current Visit: No Status: Acute Assessment and plan: December 11. Vitamin D level low at 10. Start supplemental vitamin D. - Subjective Interval history: December 11. He has no new complaints. He denies pain or dyspnea. December 13. He has no new complaints. December 15. He has no new complaints. He denies pain or dyspnea. December 18. He has no new complaints. December 21. No new problems have arisen. December 24. He has no new complaints. December 25. He has no new complaints. Lukasz 3. He has no new complaints. He denies pain. He reports minimal dyspnea. - Constitutional Vitals: Temp Pulse Resp BP Pulse Ox 98.4 F 73 16 145/70 94 12/28/18 07:09 12/28/18 07:09 12/28/18 07:09 12/28/18 07:09 12/28/18 07:09 Exam: He is resting comfortably in bed and appears in no acute distress. His affect is cheerful. Heart is regular without murmurs gallops or ectopics. Lungs are clear posteriorly. Extremities show no pitting edema. I reviewed his m edications and lab results. Internal Medicine: Result - Labs CBC & Chem 7: 12/22/18 05:20 12/11/18 04:40 Consult Discharge Plan - Plan Referrals: NONE,PCP [Primary Care Provider] - 1 week
[2018-12-28] MEDS: Aspirin Enteric Coated 81 MG Tablet PO SCH (11:00)
[2018-12-28] MEDS: Multivit/Ca/Min/Fe/FA 1 TAB TABLET PO SCH (11:00)
[2018-12-28] MEDS: Cholecalciferol (D-3) 1,000 UNIT (25MCG) TABLET PO SCH (11:00)
[2018-12-28] MEDS: Silvasorb 44.4 ML TUBE TP SCH (20:31)
[2018-12-28] MEDS: risperiDONE 0.25 MG TABLET PO SCH (20:31)
[2018-12-29] MEDS: Ascorbic Acid 500 MG TABLET PO SCH (06:01)
[2018-12-29] MEDS: Insulin LISPRO 300 UNITS/3 ML VIAL SQ SCH ×4 (07:22→21:40)
[2018-12-29] MEDS: Aspirin Enteric Coated 81 MG Tablet PO SCH (08:26)
[2018-12-29] MEDS: Cholecalciferol (D-3) 1,000 UNIT (25MCG) TABLET PO SCH (08:26)
[2018-12-29] MEDS: Multivit/Ca/Min/Fe/FA 1 TAB TABLET PO SCH (08:26)
[2018-12-29] MEDS: Tiotropium 18 MCG inhalation IH SCH (11:23)
[2018-12-29] MEDS: Silvasorb 44.4 ML TUBE TP SCH (21:40)
[2018-12-29] MEDS: risperiDONE 0.25 MG TABLET PO SCH (21:40)
[2018-12-30] MEDS: Ascorbic Acid 500 MG TABLET PO SCH (06:54)
[2018-12-30] MEDS: Insulin LISPRO 300 UNITS/3 ML VIAL SQ SCH ×4 (07:20→20:38)
[2018-12-30] MEDS: Multivit/Ca/Min/Fe/FA 1 TAB TABLET PO SCH (08:42)
[2018-12-30] MEDS: Aspirin Enteric Coated 81 MG Tablet PO SCH (08:42)
[2018-12-30] MEDS: Cholecalciferol (D-3) 1,000 UNIT (25MCG) TABLET PO SCH (08:42)
[2018-12-30] MEDS: Tiotropium 18 MCG inhalation IH SCH (11:23)
--- NOTE | 2018-12-30 17:03 | Internal Med Progress Note ---
Date of Encounter: 12/30/18 Time of Encounter: 15:15 - Assessment and plan (1) MSSA bacteremia Current Visit: No Status: Acute Assessment and plan: December 11. Continue IV Ancef with lactobacillus through 12/26/2018. December 28. He has completed the course of IV Ancef. (2) UTI (urinary tract infection) Current Visit: No Status: Acute Assessment and plan: December 11. Continue IV Levaquin and lactobacillus through 12/12/2018. December 13. Now off Levaquin. Continue to monitor. Qualifiers: Urinary tract infection type: site unspecified Hematuria presence: without hematuria Qualified Code(s): N39.0 - Urinary tract infection, site not specified (3) Diabetes Current Visit: No Status: Chronic Assessment and plan: December 11. Hemoglobin A1c slightly elevated at 7.4%. Continue Accu-Cheks with SSI. December 13. Accu-Cheks satisfactory. Continue present Rx. Qualifiers: Diabetes mellitus type: type 2 Diabetes mellitus long term care administrator insulin use: without long term care administrator use Diabetes mellitus complication status: with hyperglycemia Qualified Code(s): E11.65 - Type 2 diabetes mellitus with hyperglycemia (4) Essential hypertension Current Visit: No Status: Chronic Assessment and plan: December 11. Blood pressure remains well controlled off medications. (5) Dementia Current Visit: No Status: Chronic Assessment and plan: December 11. Suspect SDAT with superimposed alcoholism affect. B12 normal today at 326. December 24. He can answer questions and converse appropriately. Continue to monitor. Qualifiers: Dementia type: associated with alcoholism Dementia behavioral disturbance: with behavioral disturbance Qualified Code(s): F10.27 - Alcohol dependence with alcohol-induced persisting dementia (6) Blisters of multiple sites Current Visit: No Status: Acute Assessment and plan: December 11. Continue antibiotics, dressings, and multivitamin. Zinc level pending December 18. Zinc level normal at 72.4. Continue antibiotics, dressings, and multivitamins December 24. As per orthopedist in wound clinic. December 25. Blisters have drained. 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 Anticipate hand surgery 01/01/2019. December 28. Antibiotics have been completed. He is at increased risk of infections due to the presence of multiple eschars and general debilitation. I recommend he remain in swing bed until transfer to [facility] for anticipated surgery 01/01/2019 since home environment is less hygienic and present needed level of wound observation/care unavailable. December 30. He will be transferred to [facility] December 31 for hand surgery. (7) Anemia Current Visit: Yes Status: Acute Assessment and plan: December 11. Anemia testing showed iron 29, transferrin saturation 11%, transferrin 193, ferritin 322, B12 326, and folate 7.2. Start ferrous sulfate with ascorbic acid in a.m. December 21. Recheck labs in a.m. December 24. Hemoglobin stable at 11.2. Qualifiers: Anemia type: unspecified type Qualified Code(s): D64.9 - Anemia, unspecified (8) Vitamin D deficiency Current Visit: No Status: Acute Assessment and plan: December 11. Vitamin D level low at 10. Start supplemental vitamin D. - Subjective Interval history: December 11. He has no new complaints. He denies pain or dyspnea. December 13. He has no new complaints. December 15. He has no new complaints. He denies pain or dyspnea. December 18. He has no new complaints. December 21. No new problems have arisen. December 24. He has no new complaints. December 25. He has no new complaints. December 28. He has no new complaints. He denies pain. He reports minimal dyspnea. December 30. He has no new complaints. - Constitutional Vitals: Temp Pulse Resp BP Pulse Ox 98.2 F 69 18 139/70 98 12/30/18 06:49 12/30/18 08:41 12/30/18 06:49 12/30/18 08:41 12/30/18 06:49 Exam: He is resting comfortably in bed and appears in no acute distress. His affect is slightly flat as usual. Right second toe area shows adequate healing without evidence of infection. Legs show no edema. I reviewed his medications and lab results. Internal Medicine: Result - Labs CBC & Chem 7: 12/22/18 05:20 12/11/18 04:40 Consult Discharge Plan - Plan Referrals: NONE,PCP [Primary Care Provider] - 1 week
[2018-12-30] MEDS: Silvasorb 44.4 ML TUBE TP SCH (20:38)
[2018-12-30] MEDS: risperiDONE 0.25 MG TABLET PO SCH (20:38)
[2018-12-31] MEDS: Ascorbic Acid 500 MG TABLET PO SCH (06:14)
[2018-12-31] MEDS: Insulin LISPRO 300 UNITS/3 ML VIAL SQ SCH ×4 (07:22→20:41)
[2018-12-31] MEDS: Cholecalciferol (D-3) 1,000 UNIT (25MCG) TABLET PO SCH (07:30)
[2018-12-31] MEDS: Aspirin Enteric Coated 81 MG Tablet PO SCH (07:30)
[2018-12-31] MEDS: Multivit/Ca/Min/Fe/FA 1 TAB TABLET PO SCH (07:31)
[2018-12-31] MEDS: Tiotropium 18 MCG inhalation IH SCH (10:05)
[2018-12-31] MEDS: risperiDONE 0.25 MG TABLET PO SCH (20:40)
[2018-12-31] MEDS: Silvasorb 44.4 ML TUBE TP SCH (20:41)
[2019-01-01] MEDS: Ascorbic Acid 500 MG TABLET PO SCH (05:58)
[2019-01-01 06:56] VITALS: BP 149/75
[2019-01-01] MEDS: Insulin LISPRO 300 UNITS/3 ML VIAL SQ SCH (09:18)
[2019-01-01] MEDS: Multivit/Ca/Min/Fe/FA 1 TAB TABLET PO SCH (09:20)
[2019-01-01] MEDS: Cholecalciferol (D-3) 1,000 UNIT (25MCG) TABLET PO SCH (09:20)
[2019-01-01] MEDS: Aspirin Enteric Coated 81 MG Tablet PO SCH (09:20)
--- NOTE | 2019-01-01 10:47 | Discharge Summary ---
Date of Encounter: 01/01/19 Time of Encounter: 10:26 - Discharge Diagnosis (1) MSSA bacteremia Priority: Primary Status: Resolved (2) Gangrene Priority: Secondary Status: Acute (3) UTI (urinary tract infection) Priority: Secondary Status: Resolved Qualifiers: Urinary tract infection type: site unspecified Hematuria presence: without hematuria Qualified Code(s): N39.0 - Urinary tract infection, site not specified (4) Diabetes Priority: Secondary Status: Chronic Qualifiers: Diabetes mellitus type: type 2 Diabetes mellitus detention insulin use: without detention use Diabetes mellitus complication status: with hyperglycemia Qualified Code(s): E11.65 - Type 2 diabetes mellitus with hyperglycemia (5) Essential hypertension Priority: Secondary Status: Chronic (6) Dementia Priority: Secondary Status: Chronic Qualifiers: Dementia type: associated with alcoholism Dementia behavioral disturbance: with behavioral disturbance Qualified Code(s): F10.27 - Alcohol dependence with alcohol-induced persisting dementia (7) Blisters of multiple sites Priority: Secondary Status: Acute (8) Anemia Priority: Secondary Status: Acute Qualifiers: Anemia type: unspecified type Qualified Code(s): D64.9 - Anemia, unspecified (9) Vitamin D deficiency Priority: Secondary Status: Chronic Hospital course: Mr. Turner is a 78 year old male who was transferred to [facility] swing bed after a November 26 stay at [facility]. He presented to [facility] emergency room after being found on the floor at home for unknown period of time. He was found to have bacteremia with MSSA and Psychrobacter, UTI with MSSA and Serratia marcescens, and right second toe ulcer with MSSA and Serratia. 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 He had cellulitis of the right hand with gangrene of the right middle finger. He had numerous other skin ulcers. TTE showed no vegetations. He declined NIC. He was given IV antibiotics and discharged to [facility] swing bed to continue IV Levaquin through 12/12/2018 and IV Ancef through 12/26/2018. Initial orders were written by the discharging physicians at [facility]. I saw him on December 10 and performed the swing bed history and physical. He continued IV Ancef through 12/26/2018 for MSSA bacteremia. He continued IV Levaquin through 12/12/2018 for UTI. He remained afebrile following discontinuation of antibiotics. Hemoglobin A1c returned slightly elevated at 7.4%. Accu-Chek showed adequate control without need for significant SSI coverage. Vitamin D level returned low at 10. He was started on supplement with vitamin D and this will be continued at discharge. Anemia testing showed iron 29, transferrin saturation 11%, transferrin 193, ferritin 322, B12 326, and folate 7.2. He was started on ferrous sulfate with ascorbic acid and this will be continued at discharge. Zinc level returned normal at 72.4. He had ongoing dressing changes as prescribed by surgeon/wound care staff. On January 01 arrangements were complete for him to be discharged to [facility] same-day surgery for right hand gangrene surgery. - Time Spent with Patient Total time spent providing and/or coordinating discharge services: - Discharge Medications Prescriptions: New Ferrous Sulfate 325 mg PO 0630 #30 tablet Ascorbic Acid [Vitamin C] 500 mg PO 0630 #30 tablet Cholecalciferol (D-3) [Vitamin D] 2,000 unit PO DAILY #60 tablet Continued Mometasone Furoate [Asmanex Hfa] 2 puff IH BIDRESP puff Aspirin Enteric Coated [Aspirin EC] 81 mg PO DAILY tablet. Miconazole 2% cream [Maricarmen Antifungal] 1 appl TP BID tube Tamsulosin [Flomax] 0.4 mg PO DAILY capsule Insulin LISPRO [HumaLOG] 0 units SQ HS vial Insulin LISPRO [HumaLOG] 0 units SQ TIDAC vial risperiDONE [RisperDAL] 0.25 mg PO HS tablet Silvasorb 1 appl TP HS tube Tiotropium [Spiriva] 18 mcg IH DAILYR inh Acetaminophen [Tylenol] 650 mg PO Q6HR PRN tablet PRN Reason: Fever Home Medications: Acetaminophen [Tylenol] 650 mg PO Q6HR PRN tablet 12/09/18 [Rx] Aspirin Enteric Coated [Aspirin EC] 81 mg PO DAILY tablet. 12/09/18 [Rx] Insulin LISPRO [HumaLOG] 0 units SQ HS vial 12/09/18 [Rx] Insulin LISPRO [HumaLOG] 0 units SQ TIDAC vial 12/09/18 [Rx] Miconazole 2% cream [Maricarmen Antifungal] 1 appl TP BID tube 12/09/18 [Rx] Mometasone Furoate [Asmanex Hfa] 2 puff IH BIDRESP puff 12/09/18 [Rx] Silvasorb 1 appl TP HS tube 12/09/18 [Rx] Tamsulosin [Flomax] 0.4 mg PO DAILY capsule 12/09/18 [Rx] Tiotropium [Spiriva] 18 mcg IH DAILYR inh 12/09/18 [Rx] risperiDONE [RisperDAL] 0.25 mg PO HS tablet 12/09/18 [Rx] Ascorbic Acid [Vitamin C] 500 mg PO 0630 #30 tablet 01/01/19 [Rx] Cholecalciferol (D-3) [Vitamin D] 2,000 unit PO DAILY #60 tablet 01/01/19 [Rx] Ferrous Sulfate 325 mg PO 0630 #30 tablet 01/01/19 [Rx] Allergies/Adverse Reactions: Allergy/AdvReac Type Severity Reaction Status Date / Time tetanus and diphtheria AdvReac Hives Verified 06/22/15 22:32 toxoids [Tetanus&Diphtheria Toxoid] Date of admission: 12/09/18 18:45 Primary care physician: PCP NONE Consults: 12/09/18 17:43 Consult to Psychology Lecturer [CONS] Routine Reason for SW Consult: discharge planning 12/09/18 17:52 Consult to Physical Therapy [CONS] Routine Comment: Evaluate, develop and implement POC Reason for Consult: weakness Does patient have active BEDREST order?: No Is patient medically & hemodynamically stable?: Yes Patient assessed for mobility or mobilized this visit?: Yes OT [Consult to Occupational Therapy] [CONS] Routine Comment: Evaluate, develop and implement POC Reason for Consult: weakness Does patient have active BEDREST order?: No Is patient medically & hemodynamically stable?: Yes Patient assessed for mobility or mobilized this visit?: Yes 12/10/18 15:55 Consult to Speech Therapy [CONS] Routine Comment: Evaluate, develop and implement POC Reason for Consult: Evaluate, develop and implement POC Call Completed: No - Constitutional Vitals: Temp Pulse Resp BP Pulse Ox 98.2 F 63 18 149/75 95 01/01/19 06:55 01/01/19 06:55 01/01/19 06:55 01/01/19 06:55 01/01/19 07:49 - Patient Status Disposition: Transfer Other - Discharge Instructions Follow Up With: NONE,PCP [Primary Care Provider] - 1 week - Diet and Activity Activity: resume usual activities as tolerated Diet: other (Soft diet with honey thick liquids.)
--- NOTE | 2019-01-01 10:55 | Physician Discharge Referral ---
Home Health/Hosp Referral Info Transfer to: Home Health Attending Provider: Melchor Provider in Charge Post Discharge: PCP - Diagnosis (1) MSSA bacteremia Priority: Primary Status: Resolved (2) Gangrene Priority: Secondary Status: Acute (3) UTI (urinary tract infection) Priority: Secondary Status: Resolved (4) Diabetes Priority: Secondary Status: Chronic (5) Essential hypertension Priority: Secondary Status: Chronic (6) Dementia Priority: Secondary Status: Chronic (7) Blisters of multiple sites Priority: Secondary Status: Acute (8) Anemia Priority: Secondary Status: Acute (9) Vitamin D deficiency Priority: Secondary Status: Chronic - Respiratory Orders Smoking Cessation: Smoking cessation has been advised. For more information, call the [employer] Tobacco Quit Line at 5-158-HAXS-NOW. - Dressing/Wound Care Type of Dressing/Treatments w/Frequency: Daily dressing changes to multiple site wounds as directed by surgeon/wound clinic personnel. - Diet/Nutrition Diet/Nutrition Orders: Mechanical Soft (With honey thick liquids) - Activity Activity Orders: Walker (With assistance) - Services Needed Following services are medically necessary services: Nursing, Home Health Aide, Physical Therapy, Occupational Therapy - Transfer Medications Prescriptions: Ferrous Sulfate 325 mg PO 0630 #30 tablet Ascorbic Acid [Vitamin C] 500 mg PO 0630 #30 tablet Cholecalciferol (D-3) [Vitamin D] 2,000 unit PO DAILY #60 tablet Home Medications: Acetaminophen [Tylenol] 650 mg PO Q6HR PRN tablet 12/09/18 [Rx] Aspirin Enteric Coated [Aspirin EC] 81 mg PO DAILY tablet. 12/09/18 [Rx] Insulin LISPRO [HumaLOG] 0 units SQ HS vial 12/09/18 [Rx] Insulin LISPRO [HumaLOG] 0 units SQ TIDAC vial 12/09/18 [Rx] Miconazole 2% cream [Maricarmen Antifungal] 1 appl TP BID tube 12/09/18 [Rx] Mometasone Furoate [Asmanex Hfa] 2 puff IH BIDRESP puff 12/09/18 [Rx] Silvasorb 1 appl TP HS tube 12/09/18 [Rx] Tamsulosin [Flomax] 0.4 mg PO DAILY capsule 12/09/18 [Rx] Tiotropium [Spiriva] 18 mcg IH DAILYR inh 12/09/18 [Rx] risperiDONE [RisperDAL] 0.25 mg PO HS tablet 12/09/18 [Rx] Ascorbic Acid [Vitamin C] 500 mg PO 0630 #30 tablet 01/01/19 [Rx] Cholecalciferol (D-3) [Vitamin D] 2,000 unit PO DAILY #60 tablet 01/01/19 [Rx] Ferrous Sulfate 325 mg PO 0630 #30 tablet 01/01/19 [Rx] Allergies/Adverse Reactions: Allergy/AdvReac Type Severity Reaction Status Date / Time tetanus and diphtheria AdvReac Hives Verified 06/22/15 22:32 toxoids [Tetanus&Diphtheria Toxoid] Certification: Further, I certify that my clinical findings support that this patient is homebound (i.e. absences from home require considerable and taxing effort and are for medical reasons or yarsanism services or infrequently or short duration when for other reasons) because: Homebound Reason: Leaving home requires considerable and taxing effort due to condition (Dementia, postop care) Attestation: My signature below is to certify that this patient is under my care and that I, or nurse practitioner, or a physician's help desk assistant working with me, has a [id number] encounter with this patient.
== END 2019-01-01 12:15 | disposition other institution (70) | DRG 872 ==
LOC: INPPIK 12-09 18:45
PROVIDERS: ADMIT Internal Medicine; ATTEND Internal Medicine